=== PATIENT | female | born 2000 | race American Indian/Alaskan Native ===

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

== ENCOUNTER 2019-02-25 17:13 | Emergency (ER) | payer OTHER ==
--- NOTE | 2019-02-25 17:22 | Event Note ---
ED Screening Note ED Screening Note: LMP 6-12 PMH NONE PSH NONE RX NONE NO CIG THC NO ETOH B LOWER ABD PAIN FOR A WHILE DYSURIA NO DISCHARGE R KNEE PAIN HURT LONG TIME AGO MSE COMPLETED This initial assessment/diagnostic orders/clinical plan/treatment(s) is/are subject to change based on patients health status, clinical progression and re- assessment by fellow clinical providers in the ED. Further treatment and workup at subsequent clinical providers discretion. Patient/guardian urged not to elope from the ED as their condition may be serious if not clinically assessed and managed. Initial orders include:
[2019-02-25 17:23] VITALS: BP 124/73
[2019-02-25] MEDS ORDERED: TYLENOL PO ONE (17:47)
[2019-02-25 18:03] LABS: HCG Qualitative,Urine Negative (Negative)
[2019-02-25 18:06] LABS: Bilirubin,Urine NEG (Negative); Blood,Urine NEG (Negative); Color,Urine Yellow (Yellow); Urobilinogen,Urine < 2.0 mg/dL (<2.0)
[2019-02-25 18:07] LABS: Protein,Urine >500 mg/dL (Negative)
--- NOTE | 2019-02-25 19:07 | XRay Report ---
PROCEDURE: XR KNEE 3V RT HISTORY: PAIN R KNEE FINDINGS: AP lateral and oblique views of the right knee were acquired and demonstrate no fracture or malalignm ent of the right knee. No joint effusion is seen. IMPRESSION: No fracture is seen in the right knee This document is electronically signed by Ender Castillo MD., February 25 2019 07:05:52 PM ET
--- NOTE | 2019-02-25 20:06 | Emergency Department Report ---
ED Female HPI - General Chief complaint: Extremity Injury, Lower Stated complaint: KNEE/CHEST PAIN Time Seen by Provider: 02/25/19 17:20 Source: patient Mode of arrival: Ambulatory Limitations: No Limitations - History of Present Illness Initial comments: pt is a 19 y/o female who presents for urinary frequency urgency and dysuria x 1 week denies vaginal discharge denies sexual active lifestyle, has secondary complaint of chronic right knee pain , 4/10 aching exacerbated by movement pt denies fall injury or trauma pt is ambulatory to baseline per patient. MD Complaint: dysuria Onset/Timin -: week(s) Severity: moderate Severity scale (0 -10): 4 Quality: aching Consistency: intermittent Improves with: none Worsens with: urination Are you Now?: No Last Menstrual Period: 02/16/19 EDC: 11/23/19 - Related Data Previous Rx's Medication Instructions Recorded Last Taken Type Amoxicillin 500 mg PO BID #20 capsule 06/02/17 Unknown Rx Benzonatate [Tessalon Perles] 100 mg PO Q8HR #15 capsule 06/02/17 Unknown Rx Neomy/Polymyx B/Hc (Otic) Soln 4 drops RTEAR TID #1 bottle 06/02/17 Unknown Rx [Cortisporin (Otic) Soln] Fluconazole [Diflucan TAB] 150 mg PO ONCE #1 tablet 02/25/19 Unknown Rx Ibuprofen [Motrin 800 MG tab] 800 mg PO Q8HR PRN #30 tablet 02/25/19 Unknown Rx Nitrofurantoin Wilkinson/M-Cryst 100 mg PO BID 7 Days #14 capsule 02/25/19 Unknown Rx [Macrobid CAP] Allergies Allergy/AdvReac Type Severity Reaction Status Date / Time No Known Allergies Allergy Verified 06/02/17 10:06 ED Review of Systems ROS: Stated complaint: KNEE/CHEST PAIN Other details as noted in HPI Constitutional: denies: chills, fever Eyes: denies: eye pain, eye discharge, vision change ENT: denies: ear pain, throat pain Respiratory: denies: cough, shortness of breath, wheezing Cardiovascular: denies: chest pain, palpitations Endocrine: no symptoms reported Gastrointestinal: denies: abdominal pain, nausea, diarrhea Genitourinary: urgency, dysuria, frequency. denies: hematuria, discharge, abnormal menses, dyspareunia Musculoskeletal: other (knee pain ). denies: back pain, joint swelling, arthralgia Skin: denies: rash, lesions Neurological: denies: headache, weakness, paresthesias Psychiatric: denies: anxiety, depression Hematological/Lymphatic: denies: easy bleeding, easy bruising ED Past Medical Hx - Past Medical History Previous Medical History?: No - Surgical History Past Surgical History?: No - Social History Smoking Status: Never Smoker Substance Use Type: Marijuana - Medications Home Medications: Home Medications Medication Instructions Recorded Confirmed Last Taken Type Amoxicillin 500 mg PO BID #20 capsule 06/02/17 Unknown Rx Benzonatate [Tessalon Perles] 100 mg PO Q8HR #15 capsule 06/02/17 Unknown Rx Neomy/Polymyx B/Hc (Otic) Soln 4 drops RTEAR TID #1 bottle 06/02/17 Unknown Rx [Cortisporin (Otic) Soln] Fluconazole [Diflucan TAB] 150 mg PO ONCE #1 tablet 02/25/19 Unknown Rx Ibuprofen [Motrin 800 MG tab] 800 mg PO Q8HR PRN #30 tablet 02/25/19 Unknown Rx Nitrofurantoin Wilkinson/M-Cryst 100 mg PO BID 7 Days #14 capsule 02/25/19 Unknown Rx [Macrobid CAP] ED Physical Exam - General Limitations: No Limitations General appearance: alert, in no apparent distress - Head Head exam: Present: atraumatic, normocephalic - Eye Eye exam: Present: normal appearance, PERRL, EOMI Pupils: Present: normal accommodation - ENT ENT exam: Present: mucous membranes moist - Neck Neck exam: Present: normal inspection, full ROM. Absent: tenderness, meningismus, lymphadenopathy, thyromegaly - Respiratory Respiratory exam: Present: normal lung sounds bilaterally. Absent: respiratory distress, wheezes, stridor, chest wall tenderness - Cardiovascular Cardiovascular Exam: Present: regular rate, normal rhythm, normal heart sounds. Absent: systolic murmur, diastolic murmur, rubs, gallop - GI/Abdominal GI/Abdominal exam: Present: soft, normal bowel sounds. Absent: distended, tenderness, bruit, hernia - Rectal Rectal exam: Present: deferred - Extremities Exam Extremities exam: Present: normal inspection, full ROM, normal capillary refill. Absent: tenderness, pedal edema, joint swelling, calf tenderness - Expanded Lower Extremity Exam Right Knee exam: Present: full ROM, pain w/ pronation/supination, full knee extension. Absent: tenderness, swelling, abrasion, laceration, ecchymosis, deformity, crepidus, dislocation, erythema, effusion, posterior draw sign, pain/laxity with valgus, pain/laxity with varus Lower Leg exam: Present: normal inspection, full ROM. Absent: tenderness Ankle exam: Present: normal inspection, full ROM. Absent: tenderness Foot/Toe exam: Present: normal inspection, full ROM. Absent: tenderness Neuro vascular tendon exam: Absent: pulse deficit, motor deficit, sensory deficit, tendon deficit Gait: Positive: observed and normal - Back Exam Back exam: Present: normal inspection, full ROM. Absent: tenderness, CVA tenderness (R), CVA tenderness (L), muscle spasm, paraspinal tenderness, vertebral tenderness, rash noted - Neurological Exam Neurological exam: Present: alert, oriented X3, CN II-XII intact, normal gait, reflexes normal. Absent: motor sensory deficit - Psychiatric Psychiatric exam: Present: normal affect, normal mood - Skin Skin exam: Present: warm, dry, intact, normal color. Absent: rash ED Course Vital Signs 02/25/19 17:20 Temperature 98.3 F Pulse Rate 89 Respiratory 18 Rate Blood Pressure 124/73 O2 Sat by Pulse 98 Oximetry ED Medical Decision Making - Lab Data Labs 02/25/19 17:30 Urine Color Yellow Urine Turbidity Clear Urine pH 7.0 Ur Specific Wyatt 1.015 Urine Protein >500 Urine Glucose (UA) Neg Urine Ketones Neg Urine Blood Neg Urine Nitrite Neg Ur Reducing Substances Not Reportable Urine Bilirubin Neg Urine Ictotest Not Reportable Urine Urobilinogen < 2.0 Ur Leukocyte Esterase Tr Urine WBC (Auto) 10.0 H Urine RBC (Auto) 2.0 U Epithel Cells (Auto) 3.0 Urine HCG, Qual Negative - Radiology Data Radiology results: report reviewed, image reviewed Ordering Physician: ZULMA ORTIZ Date of Service: 02/25/19 Procedure(s): XR knee 3V RT Accession Number(s): [id number] cc: ZULMA ORTIZ Fluoro Time In Minutes: PROCEDURE: XR KNEE 3V RT HISTORY: PAIN R KNEE FINDINGS: AP lateral and oblique views of the right knee were acquired and demonstrate no fracture or malalignment of the right knee. No joint effusion is seen. IMPRESSION: No fracture is seen in the right knee This document is electronically signed by Ender Castillo MD., February 25 2019 07:05:52 PM ET Transcribed By: ALEC Dictated By: ENDER CASTILLO MD Electronically Authenticated By: ENDER CASTILLO MD Signed Date/Time: 02/25/191906 DD/ 42 TD/TT: 02/25/191842 - Medical Decision Making xray knee is normal no fracture plan: ibuprofen prn pain , knee exercises, rice therapy , UTI: macrobid , diflucan follow up with pcp as needed return to ed if symptoms worsen Critical care attestation.: If time is entered above; I have spent that time in minutes in the direct care of this critically ill patient, excluding procedure time. ED Disposition Clinical Impression: Knee strain Qualifiers: Encounter type: initial encounter Laterality: right Qualified Code(s): S86.911A - Strain of unspecified muscle(s) and tendon(s) at lower leg level, right leg, initial encounter UTI (urinary tract infection) Qualifiers: Urinary tract infection type: acute cystitis Hematuria presence: without hematuria Qualified Code(s): N30.00 - Acute cystitis without hematuria Disposition: -01 TO HOME OR SELFCARE Is pt being admited?: No Does the pt Need Aspirin: No Condition: Stable Instructions: RICE Therapy (ED), Urinary Tract Infection in Women (ED) Prescriptions: Fluconazole [Diflucan TAB] 150 mg PO ONCE #1 tablet Nitrofurantoin Wilkinson/M-Cryst [Macrobid CAP] 100 mg PO BID 7 Days #14 capsule Ibuprofen [Motrin 800 MG tab] 800 mg PO Q8HR PRN #30 tablet PRN Reason: pain Referrals: STEPHANI GUZMAN MD [Primary Care Provider] - 3-5 Days Forms: Work/School Release Form(ED) Time of Disposition: 20:15
== END 2019-02-25 20:50 | disposition home or self-care (01) ==
LOC: ED 17:13
DX: S86.911A Strain of unspecified muscle(s) and tendon(s) at lower leg level, right leg, initial encounter (principal); N39.0 Urinary tract infection, site not specified; F12.10 Cannabis abuse, uncomplicated; Z79.899 Other long term (current) drug therapy; X58.XXXA Exposure to other specified factors, initial encounter; Y93.89 Activity, other specified; Y92.89 Other specified places as the place of occurrence of the external cause; Y99.8 Other external cause status
CPT/HCPCS: 81001; 81025; 87086

== ENCOUNTER 2021-03-31 14:53 | Emergency (ER) | payer SELFPAY ==
[2021-03-31 17:13] VITALS: BP 125/83
== END 2021-03-31 19:00 | disposition left against medical advice (07) ==
LOC: ED 14:53
DX: R22.0 Localized swelling, mass and lump, head (principal); Z53.21 Procedure and treatment not carried out due to patient leaving prior to being seen by health care provider